=== PATIENT | female | born 1955 | race Caucasian/White ===

== ENCOUNTER 2019-10-22 22:25 | Inpatient (IN) | payer OTHER ==
[~2019-10-22] VITALS: Ht 165.1 cm; Wt 56.7 kg
[2019-10-22 22:29] VITALS: BP_SYST 122
[2019-10-23] MEDS ORDERED: MORPHINE 4 MG/ML INJ. SYRINGE IVP ONE (00:15)
[2019-10-23 00:46] LABS: BASOPHILS % (AUTO) 0.5 % (0.0-2.0); EOSINOPHILS % (AUTO) 0.3 % (0.0-4.0); HEMATOCRIT 39.3 % (36-48); HEMOGLOBIN 13.3 g/dL (12.0-16.0); LYMPHOCYTES # (AUTO) 1.3 K/uL (1.0-5.5); LYMPHOCYTES % (AUTO) 17.2 % (20.5-51.5); MEAN CORPUSCULAR HEMOGLOBIN 32 pg (27-31); MEAN CORPUSCULAR HGB CONC 34 % (32-36); MEAN CORPUSCULAR VOLUME 96 fL (79.0-98.0); MONOCYTES # (AUTO) 0.5 K/uL (0.0-1.0); MONOCYTES % (AUTO) 5.9 % (1.7-9.3); NEUTROPHILS # (AUTO) 5.9 K/uL (1.8-7.7); NEUTROPHILS % (AUTO) 76.1 % (40.0-70.0); PLATELET COUNT (AUTO) 146 K/uL (130-430); WHITE BLOOD COUNT (AUTO) 7.7 K/uL (4.8-10.8)
[2019-10-23 00:57] LABS: CALCIUM 8.6 mg/dL (8.4-11.0); CREATININE 0.52 mg/dL (0.55-1.30); POTASSIUM 3.1 mmol/L (3.5-5.1)
[2019-10-23 01:09] LABS: ALBUMIN 3.8 g/dL (3.4-4.8); TOTAL BILIRUBIN 0.3 mg/dL (0.0-1.0)
[2019-10-23] MEDS ORDERED: POTASSIUM CHLORIDE 20 MEQ TAB.PRT.SR PO ONE (01:45)
[2019-10-23] MEDS ORDERED: ACETAMINOPHEN 325 MG TABLET PO PRN ×2 (01:45)
[2019-10-23 03:34] VITALS: BP_SYST 126
[2019-10-23 08:21] VITALS: BP_SYST 132
[2019-10-23] MEDS: HYDROcodone/ACETAMIN 5-325 MG TAB (NORCO/ VICODIN) PO PRN ×2 (09:13→21:42)
[2019-10-23 12:00] VITALS: BP_SYST 134
[2019-10-23 16:27] VITALS: BP_SYST 137
[2019-10-23] MEDS ORDERED: LORazepam 1 MG TABLET ONE (17:11)
[2019-10-23] MEDS ORDERED: LORazepam 2 MG/ML VIAL IVP ONE (18:15)
[2019-10-23 20:00] VITALS: BP_SYST 153
[2019-10-23] MEDS: LORazepam 1 MG TABLET PO PRN (21:42)
[2019-10-24 00:45] VITALS: BP_SYST 131
[2019-10-24 04:30] VITALS: BP_SYST 136
[2019-10-24 06:43] LABS: EOSINOPHILS # (AUTO) 0.1 K/uL (0.0-0.4); EOSINOPHILS % (AUTO) 2.7 % (0.0-4.0); HEMATOCRIT 36.9 % (36-48); HEMOGLOBIN 12.4 g/dL (12.0-16.0); LYMPHOCYTES # (AUTO) 1.5 K/uL (1.0-5.5); LYMPHOCYTES % (AUTO) 37.1 % (20.5-51.5); MEAN CORPUSCULAR HEMOGLOBIN 32 pg (27-31); MEAN CORPUSCULAR HGB CONC 34 % (32-36); MEAN CORPUSCULAR VOLUME 96 fL (79.0-98.0); MONOCYTES # (AUTO) 0.3 K/uL (0.0-1.0); MONOCYTES % (AUTO) 7.4 % (1.7-9.3); NEUTROPHILS # (AUTO) 2.1 K/uL (1.8-7.7); NEUTROPHILS % (AUTO) 51.8 % (40.0-70.0); PLATELET COUNT (AUTO) 127 K/uL (130-430); RED BLOOD CELL COUNT(AUTO) 3.83 MIL/uL (4.2-6.2); RED CELL DISTRIBUTION WIDTH 13.3 % (9.0-15.0); WHITE BLOOD COUNT (AUTO) 4.1 K/uL (4.8-10.8)
[2019-10-24 07:27] LABS: CALCIUM 8.3 mg/dL (8.4-11.0); CREATININE 0.62 mg/dL (0.55-1.30); POTASSIUM 3.5 mmol/L (3.5-5.1)
[2019-10-24] MEDS: CITALOPRAM HYDROBROMIDE 20 MG TABLET PO SCH (07:57)
[2019-10-24] MEDS: FAMOTIDINE 20 MG TABLET PO SCH (07:57)
[2019-10-24] MEDS: HYDROcodone/ACETAMIN 5-325 MG TAB (NORCO/ VICODIN) PO PRN (07:58)
[2019-10-24 08:08] VITALS: BP_SYST 137
[2019-10-24] MEDS: LORazepam 1 MG TABLET PO PRN (11:17)
[2019-10-24 11:32] LABS: THYROID STIMULATING HORMONE 11.6 uIu/mL (0.36-3.74)
[2019-10-24 12:00] VITALS: BP_SYST 128
[2019-10-24] MEDS ORDERED: LORazepam 2 MG/ML VIAL IVP PRN (12:45)
[2019-10-24 16:36] VITALS: BP_SYST 126
[2019-10-24] MEDS ORDERED: HALOPERIDOL LACTATE 5 MG/ML VIAL IVP PRN (19:45)
[2019-10-24 20:05] VITALS: BP_SYST 153
[2019-10-24] MEDS: LORazepam 2 MG/ML VIAL IVP PRN (20:13)
[2019-10-25] MEDS: LORazepam 1 MG TABLET PO PRN ×3 (04:14→21:33)
[2019-10-25 08:00] VITALS: BP_SYST 135
[2019-10-25] MEDS: FAMOTIDINE 20 MG TABLET PO SCH (08:39)
[2019-10-25] MEDS: QUEtiapine FUMARATE 25 MG TABLET PO SCH ×2 (08:40→21:33)
[2019-10-25] MEDS: CITALOPRAM HYDROBROMIDE 20 MG TABLET PO SCH (08:40)
[2019-10-25] MEDS: LEVOTHYROXINE SODIUM 0.025 MG TABLET PO SCH (11:45)
[2019-10-25 12:00] VITALS: BP_SYST 132
[2019-10-25] MEDS ORDERED: LEVOTHYROXINE SODIUM 0.025 MG TABLET PO ONE (14:00)
[2019-10-25] MEDS: HYDROcodone/ACETAMIN 5-325 MG TAB (NORCO/ VICODIN) PO PRN (14:21)
[2019-10-25 16:00] VITALS: BP_SYST 138
[2019-10-25 19:00] VITALS: BP_SYST 130
[2019-10-25 20:00] VITALS: BP_SYST 138
[2019-10-26] VITALS: BP_SYST 139
[2019-10-26 04:00] VITALS: BP_SYST 135
[2019-10-26] MEDS: LEVOTHYROXINE SODIUM 0.025 MG TABLET PO SCH (06:24)
[2019-10-26 08:00] VITALS: BP_SYST 143
[2019-10-26] MEDS: QUEtiapine FUMARATE 25 MG TABLET PO SCH ×2 (09:24→20:49)
[2019-10-26] MEDS: CITALOPRAM HYDROBROMIDE 20 MG TABLET PO SCH (09:24)
[2019-10-26] MEDS: FAMOTIDINE 20 MG TABLET PO SCH (09:25)
[2019-10-26 12:00] VITALS: BP_SYST 130
[2019-10-26] MEDS: LORazepam 2 MG/ML VIAL IVP PRN (14:32)
[2019-10-26 20:00] VITALS: BP_SYST 140
[2019-10-27] VITALS: BP_SYST 120
[2019-10-27 04:00] VITALS: BP_SYST 135
[2019-10-27] MEDS: LEVOTHYROXINE SODIUM 0.025 MG TABLET PO SCH (06:23)
[2019-10-27 08:00] VITALS: BP_SYST 133
[2019-10-27] MEDS: CITALOPRAM HYDROBROMIDE 20 MG TABLET PO SCH (10:16)
[2019-10-27] MEDS: QUEtiapine FUMARATE 25 MG TABLET PO SCH (10:17)
[2019-10-27] MEDS: FAMOTIDINE 20 MG TABLET PO SCH (10:17)
[2019-10-27] MEDS ORDERED: FAMO20TA8 PO (11:14)
[2019-10-27] MEDS ORDERED: SER25 PO (11:14)
[2019-10-27] MEDS ORDERED: LEVO25TA2 PO (11:14)
[2019-10-27] MEDS ORDERED: CEL20 PO (11:14)
[2019-10-27 12:00] VITALS: BP_SYST 122
[2019-10-27 12:15] VITALS: BP_SYST 122
[2019-10-27 12:28] VITALS: BP_SYST 122
== END 2019-10-27 13:25 | disposition home or self-care (01) | DRG 74 ==
LOC: SED 22:25 → STU 10-23 01:32 → SMU 10-23 12:37 → STU 10-24 19:45 → SMU 10-26 16:41
PROVIDERS: ADMIT Internal Medicine; ATTEND Internal Medicine Hospice and Palliative Medicine
DX: G90.8 Other disorders of autonomic nervous system (principal); E87.6 Hypokalemia; F32.9 Major depressive disorder, single episode, unspecified; I10 Essential (primary) hypertension; E03.9 Hypothyroidism, unspecified; Z79.899 Other long term (current) drug therapy
CPT/HCPCS: 36415; 70450-TC; 70486-TC; 71045; 71100; 72125-TC; 73502; 80048; 80053; 83735-TC; 84443-TC; 84484; 85025; 93005; 96374; 99285; G0378; J1630; J2060; J2270